=== PATIENT | male | born 1990 | race Caucasian/White ===

== ENCOUNTER 2017-09-17 15:08 | Emergency (ER) | payer SELFPAY ==
[~2017-09-17] VITALS: Ht 188 cm; Wt 74.1 kg
[2017-09-17 15:30] VITALS: BP 120/83
== END 2017-09-17 18:40 | disposition left against medical advice (07) ==
LOC: EME 15:08
DX: R22.32 Localized swelling, mass and lump, left upper limb (principal); M79.602 Pain in left arm; Z53.21 Procedure and treatment not carried out due to patient leaving prior to being seen by health care provider